=== PATIENT | male | born 1970 | race Caucasian/White ===

== ENCOUNTER 2016-09-02 20:18 | Emergency (ER) | payer SELFPAY ==
[2016-09-02 20:27] VITALS: BP 150/101
== END 2016-09-02 21:19 | disposition home or self-care (01) ==
LOC: ED 20:18
DX: Z76.0 Encounter for issue of repeat prescription (principal); H40.9 Unspecified glaucoma; E11.9 Type 2 diabetes mellitus without complications; G47.00 Insomnia, unspecified; F32.9 Major depressive disorder, single episode, unspecified; Z79.899 Other long term (current) drug therapy